=== PATIENT | female | born 1960 | race Hispanic/Latino ===

== ENCOUNTER 2023-03-29 14:57 | Inpatient (IN) | payer SELFPAY ==
[2023-03-29 16:13] LABS: #Monocytes 0.9 thou/uL (0.11-0.59); %Basophils 0.3 % (0.0-1.0); %Eosinophils 0.1 % (0.0-10.0); %Lymphocytes 10.8 % (21.0-51.0); %Monocytes 6.4 % (0.0-10.0); Hematocrit 42.7 % (36.0-47.0); Mean Corpuscular HGB CONC 32.8 g/dL (32.0-36.0); Mean Corpuscular Hemoglobin 31.4 pg (27.0-31.0); Mean Corpuscular Volume 95.7 fl (78.0-98.0); Mean Platelet Volume 10.1 fL (7.4-10.4); Platelet Count 149 10x3/uL (130-400); RBC Distribution Width 14.1 % (11.5-14.5); Red Blood Cell (RBC) Count 4.46 mill/uL (4.20-5.40); White Blood Cell (WBC) Count 14.6 10x3/uL (4.8-10.8)
[2023-03-29 16:32] LABS: Bilirubin Negative (Negative); Blood, Urine Trace (Negative); Glucose, Urine (Dipstick) Negative (Negative); Ketone, Urine Negative (Negative); Leukocyte Small (Negative); Nitrite Positive (Negative); Protein, Urine (Dipstick) Negative (Neg-Trace); Specific Gravity, Urine 1.015 (1.005-1.030); Urobilinogen 0.2 mg/dL (Less than 2); pH, Urine 5.5 (5.0-9.0)
[2023-03-29 16:33] LABS: Clarity Clear (Clear)
[2023-03-29 16:34] LABS: Bacteria/HPF 1+ HPF (None Seen); CAUTI Indications for Culture Dysuria,urgency,freq; RBC/HPF 0-3 HPF (0-3); Squamous Epithelial 0-3 HPF (0-3)
[2023-03-29 16:36] LABS: Urine Culture Reflex Yes Yes
[2023-03-29 16:37] LABS: ALT (SGPT) 14 U/L (8-55); AST (SGOT) 14 U/L (5-34); Albumin 3.8 g/dL (3.4-4.8); Alkaline Phosphatase 97 U/L (40-110); Anion Gap 13 mmol/L (10-20); BUN (Urea Nitrogen) 11 mg/dL (9.8-20.1); Bilirubin, Total 0.9 mg/dL (0.2-1.2); Calc. Creatinine Clearance 0 mL/min (70-130); Calcium 9.4 mg/dL (7.8-10.44); Carbon Dioxide 24 mmol/L (23-31); Chloride 99 mmol/L (98-107); Estimated GFR 89; Globulin 3.5 g/dL (2.4-3.5); Glucose 160 mg/dL (80-115); Lipase 19 U/L (8-78); Potassium 3.3 mmol/L (3.5-5.1); Protein, Total 7.3 g/dL (5.8-8.1); Sodium 133 mmol/L (136-145)
[2023-03-29 16:45] LABS: Troponin I Less than 0.010 ng/mL (< 0.028)
[2023-03-29] MEDS ORDERED: cefTRIAXone (ROCEPHIN) 1 GM VIAL ONE (17:03)
[2023-03-29 17:18] LABS: SARS-CoV-2 NAA Rapid Test Not Detected (NotDetected)
[2023-03-29] MEDS ORDERED: Acetaminophen 500 MG TAB ONE (17:18)
[2023-03-29] MEDS ORDERED: Ondansetron PF 4 MG/2 ML Vial IVP PRN (21:45)
[2023-03-29] MEDS ORDERED: Acetaminophen 325 MG TAB PO PRN (21:45)
[2023-03-29] MEDS ORDERED: Ondansetron ODT 4 MG TAB SL PRN (21:45)
[2023-03-29] MEDS ORDERED: Electrolyte Replacement Protocol 1 EACH FS SCH (21:52)
[2023-03-29 22:21] VITALS: BMI 23.6
[2023-03-30 06:05] LABS: #Monocytes 0.3 thou/uL (0.11-0.59); #Neutrophils 7.4 thou/uL (1.40-6.50); %Basophils 0.4 % (0.0-1.0); %Eosinophils 0.4 % (0.0-10.0); %Monocytes 3.9 % (0.0-10.0); %Neutrophils 86.9 % (42.0-75.0); Hematocrit 39.6 % (36.0-47.0); Hemoglobin 13.2 g/dL (12.0-16.0); Mean Corpuscular HGB CONC 33.3 g/dL (32.0-36.0); Mean Corpuscular Hemoglobin 31.9 pg (27.0-31.0); Mean Corpuscular Volume 95.7 fl (78.0-98.0); Mean Platelet Volume 9.9 fL (7.4-10.4); Platelet Count 105 10x3/uL (130-400); RBC Distribution Width 14.3 % (11.5-14.5); Red Blood Cell (RBC) Count 4.14 mill/uL (4.20-5.40); White Blood Cell (WBC) Count 8.5 10x3/uL (4.8-10.8)
[2023-03-30 06:32] LABS: Anion Gap 10 mmol/L (10-20); BUN (Urea Nitrogen) 8 mg/dL (9.8-20.1); Calc. Creatinine Clearance 77 mL/min (70-130); Calcium 8.5 mg/dL (7.8-10.44); Carbon Dioxide 26 mmol/L (23-31); Chloride 105 mmol/L (98-107); Estimated GFR 94; Glucose 206 mg/dL (80-115); Sodium 138 mmol/L (136-145)
[2023-03-30 08:00] LABS: Burr Cells SLIGHT = 2-5 cells HPF (0-1); CellaVision Operator ID LAB.GE; Platelet Adequacy Comment Platelets Decreased; Polychromasia SLIGHT = 2-3 cells HPF (0-2)
[2023-03-30] MEDS ORDERED: Potassium Chloride 20 MEQ TAB PO SCH (08:00)
[2023-03-30] MEDS: Lisinopril 20 MG TAB PO SCH (08:19)
[2023-03-30] MEDS: cefTRIAXone\\ROCEPHIN 1 GM in Sodium Chloride 0.9% 100 ML IVPB SCH (08:19)
[2023-03-30] MEDS: Famotidine 20 MG TAB PO SCH ×2 (08:19→21:04)
[2023-03-30] MEDS: metFORMIN 500 MG TAB PO SCH ×2 (08:19→16:43)
[2023-03-30] MEDS: predniSONE 20 MG TAB PO SCH (08:19)
[2023-03-30] MEDS ORDERED: Dextrose 5% in Water 1,000 ML IV PRN (12:41)
[2023-03-30] MEDS ORDERED: Glucagon 1 MG/ML KIT IM PRN (12:41)
[2023-03-30] MEDS ORDERED: Dextrose 50% Abboject 50 ML SYRINGE SLOW IVP PRN (12:41)
[2023-03-30] MEDS: HumaLOG 300 UNITS/3 ML VIAL SC PRN ×2 (16:42→21:04)
[2023-03-30] MEDS ORDERED: Atorvastatin Calcium 20 MG TAB PO SCH (21:00)
[2023-03-31 06:29] LABS: Anion Gap 10 mmol/L (10-20); BUN (Urea Nitrogen) 6 mg/dL (9.8-20.1); Calc. Creatinine Clearance 81 mL/min (70-130); Calcium 8.7 mg/dL (7.8-10.44); Carbon Dioxide 26 mmol/L (23-31); Chloride 104 mmol/L (98-107); Estimated GFR 98; Glucose 187 mg/dL (80-115); Potassium 3.5 mmol/L (3.5-5.1); Sodium 136 mmol/L (136-145)
[2023-03-31 06:47] LABS: #Eosinphils 0.1 thou/uL (0.0-0.7); #Monocytes 0.7 thou/uL (0.11-0.59); #Neutrophils 5.9 thou/uL (1.40-6.50); %Basophils 0.2 % (0.0-1.0); %Eosinophils 1.1 % (0.0-10.0); %Lymphocytes 20.3 % (21.0-51.0); %Monocytes 8.7 % (0.0-10.0); %Neutrophils 69.6 % (42.0-75.0); Hematocrit 37.8 % (36.0-47.0); Hemoglobin 12.7 g/dL (12.0-16.0); Mean Corpuscular HGB CONC 33.6 g/dL (32.0-36.0); Mean Corpuscular Hemoglobin 32.1 pg (27.0-31.0); Mean Corpuscular Volume 95.5 fl (78.0-98.0); Mean Platelet Volume 10.7 fL (7.4-10.4); Platelet Count 128 10x3/uL (130-400); RBC Distribution Width 13.9 % (11.5-14.5); Red Blood Cell (RBC) Count 3.96 mill/uL (4.20-5.40); White Blood Cell (WBC) Count 8.4 10x3/uL (4.8-10.8)
[2023-03-31] MEDS ORDERED: Potassium Chloride 20 MEQ TAB PO SCH (08:00)
[2023-03-31] MEDS: cefTRIAXone\\ROCEPHIN 1 GM in Sodium Chloride 0.9% 100 ML IVPB SCH (08:28)
[2023-03-31] MEDS: metFORMIN 500 MG TAB PO SCH (08:31)
[2023-03-31] MEDS: Famotidine 20 MG TAB PO SCH (08:31)
[2023-03-31] MEDS: Lisinopril 20 MG TAB PO SCH (08:31)
[2023-03-31] MEDS: predniSONE 20 MG TAB PO SCH (08:31)
[2023-03-31] MEDS ORDERED: Meropenem 1 GM in Sodium Chloride 0.9% 100 ML IVPB SCH ×2 (11:30→22:00)
[2023-03-31 11:36] VITALS: BP 139/77; TEMP 98.1
== END 2023-03-31 14:33 | disposition home or self-care (01) | DRG 872 ==
LOC: ERS 14:57 → T4-A 20:21 → OBSVTOIN 03-30 14:31
PROVIDERS: ADMIT Student in an Organized Health Care Education/Training Program; ATTEND Family Medicine
DX: A41.51 Sepsis due to Escherichia coli [E. coli] (principal); N10 Acute pyelonephritis; N13.30 Unspecified hydronephrosis; E78.5 Hyperlipidemia, unspecified; M19.90 Unspecified osteoarthritis, unspecified site; I10 Essential (primary) hypertension; E11.9 Type 2 diabetes mellitus without complications; Z20.822 Contact with and (suspected) exposure to COVID-19; Z98.890 Other specified postprocedural states
CPT/HCPCS: 36415; 36416; 71045; 74176; 74181; 80048; 80053; 81001; 83036; 83605; 83690; 84484; 85025; 87040; 87077; 87086; 87186; 93005; 96361; 96365; 96376; G0378; J0696; J1815; J2185; J3490; J7512; U0002

== ENCOUNTER 2023-06-03 10:29 | Observation (INO) | payer SELFPAY ==
[2023-06-03] MEDS ORDERED: Ketamine In 0.9 % NaCl 50 MG/5 ML SYRINGE ONE ×2 (12:13→12:54)
[2023-06-03] MEDS ORDERED: Bupivacaine 0.25% 10 ML VIAL ONE (12:13)
[2023-06-03] MEDS ORDERED: Morphine 4 MG/ML VIAL ONE (15:48)
[2023-06-03] MEDS ORDERED: Ondansetron ODT 4 MG TAB PO PRN (17:17)
[2023-06-03] MEDS ORDERED: Ipratropium/Albuterol 3 ML NEB NEB PRN (17:17)
[2023-06-03] MEDS ORDERED: Morphine 2 MG/ML VIAL SLOW IVP PRN (17:17)
[2023-06-03] MEDS ORDERED: hydrALAZINE 20 MG/ML VIAL SLOW IVP PRN (17:17)
[2023-06-03] MEDS ORDERED: Dextrose 50% Abboject 50 ML SYRINGE SLOW IVP PRN (17:17)
[2023-06-03] MEDS ORDERED: Glucagon 1 MG/ML KIT IM PRN (17:17)
[2023-06-03] MEDS ORDERED: Dextrose 5% in Water 1,000 ML IV PRN (17:17)
[2023-06-03] MEDS ORDERED: TETANUS, DIPHTHERIA TOX,ADULT (TDVAX) 0.5 ML VIAL IM ONE (17:17)
[2023-06-03 18:23] VITALS: BMI 20.2
[2023-06-03] MEDS ORDERED: Acetaminophen 325 MG TAB ONE (18:28)
[2023-06-03] MEDS ORDERED: Boostrix 0.5 ML (Tdap) VIAL (>/=7 yrs of age) ONE (18:29)
[2023-06-03] MEDS: Acetaminophen 325 MG TAB PO SCH (18:41)
[2023-06-03 19:20] LABS: Troponin I Less than 0.010 ng/mL (< 0.028)
[2023-06-03] MEDS: Famotidine 20 MG TAB PO SCH (20:21)
[2023-06-03] MEDS: HumaLOG 300 UNITS/3 ML VIAL SC PRN (20:25)
[2023-06-03 21:11] LABS: #Monocytes 0.8 thou/uL (0.11-0.59); %Basophils 0.3 % (0.0-1.0); %Eosinophils 0.3 % (0.0-10.0); %Lymphocytes 22.2 % (21.0-51.0); %Monocytes 8.2 % (0.0-10.0); %Neutrophils 68.8 % (42.0-75.0); Hematocrit 36.1 % (36.0-47.0); Mean Corpuscular HGB CONC 33.2 g/dL (32.0-36.0); Mean Corpuscular Hemoglobin 31.3 pg (27.0-31.0); Mean Platelet Volume 9.8 fL (7.4-10.4); Platelet Count 211 10x3/uL (130-400); RBC Distribution Width 15.2 % (11.5-14.5); Red Blood Cell (RBC) Count 3.84 mill/uL (4.20-5.40); White Blood Cell (WBC) Count 10.1 10x3/uL (4.8-10.8)
[2023-06-03 21:34] LABS: ALT (SGPT) 15 U/L (8-55); AST (SGOT) 17 U/L (5-34); Albumin 3.8 g/dL (3.4-4.8); Alkaline Phosphatase 84 U/L (40-110); Anion Gap 14 mmol/L (10-20); BUN (Urea Nitrogen) 12 mg/dL (9.8-20.1); Bilirubin, Total 0.8 mg/dL (0.2-1.2); Calc. Creatinine Clearance 63 mL/min (70-130); Calcium 8.5 mg/dL (7.8-10.44); Carbon Dioxide 25 mmol/L (23-31); Chloride 99 mmol/L (98-107); Estimated GFR 89; Globulin 2.4 g/dL (2.4-3.5); Glucose 286 mg/dL (80-115); Protein, Total 6.2 g/dL (5.8-8.1); Sodium 134 mmol/L (136-145)
[2023-06-04] MEDS: traMADol HCl 50 MG TAB PO PRN ×2 (01:06→08:01)
[2023-06-04] MEDS: Acetaminophen 325 MG TAB PO SCH ×3 (01:09→12:48)
[2023-06-04] MEDS: Famotidine 20 MG TAB PO SCH (07:59)
[2023-06-04 08:15] LABS: Glucose 179 mg/dL (80-115)
[2023-06-04 11:50] LABS: Glucose 183 mg/dL (80-115)
[2023-06-04 12:27] VITALS: TEMP 98.2
[2023-06-04] MEDS: HumaLOG 300 UNITS/3 ML VIAL SC PRN (12:49)
[2023-06-04 15:54] VITALS: BP 126/77
== END 2023-06-04 15:58 | disposition home or self-care (01) ==
LOC: ERS 10:29 → INTOOBSV 16:08 → ERHOLD 16:08 → T4-A 19:06
PROVIDERS: ADMIT Surgery; ATTEND Surgery
DX: S52.121A Displaced fracture of head of right radius, initial encounter for closed fracture (principal); S53.004A Unspecified dislocation of right radial head, initial encounter; M06.9 Rheumatoid arthritis, unspecified; E78.5 Hyperlipidemia, unspecified; I10 Essential (primary) hypertension; E11.42 Type 2 diabetes mellitus with diabetic polyneuropathy; Z79.84 Long term (current) use of oral hypoglycemic drugs; Z79.899 Other long term (current) drug therapy; W18.30XA Fall on same level, unspecified, initial encounter
CPT/HCPCS: 24600; 36415; 36416; 71045; 80053; 82947; 84484; 85025; 90714; 90715; 96372; 96374; 96376; G0378; J1815; J2270; J2272; J3490; S0020

== ENCOUNTER 2023-06-17 08:49 | Outpatient (CLI) | payer SELFPAY ==
[2023-06-17 11:41] LABS: #Eosinphils 0.1 10x3/uL (0.0-0.5); #Monocytes 0.4 10x3/uL (0.0-1.1); #Neutrophils 4.4 10x3/uL (1.5-8.4); %Basophils 0.3 % (0.0-2.0); %Eosinophils 1.4 % (0.0-6.0); %Lymphocytes 22.6 % (18.0-47.0); %Monocytes 6.7 % (0.0-10.0); %Neutrophils 68.8 % (40.0-75.0); Hematocrit 41.5 % (34.9-44.5); Hemoglobin 13.5 g/dL (12.0-15.5); Mean Corpuscular HGB CONC 32.5 g/dL (32.0-36.0); Mean Corpuscular Hemoglobin 30.6 pg (27.0-33.0); Mean Corpuscular Volume 94.1 fl (81.6-98.3); Mean Platelet Volume 10.2 fl (7.4-10.4); Platelet Count 237 10x3/uL (150-450); RBC Distribution Width 15.6 % (11.5-14.5); Red Blood Cell (RBC) Count 4.41 10x6/uL (3.90-5.03); White Blood Cell (WBC) Count 6.4 10x3/uL (3.5-10.5)
[2023-06-17 12:13] LABS: Anion Gap 14 mmol/L (10-20); BUN (Urea Nitrogen) 11 mg/dL (9.8-20.1); Calc. Creatinine Clearance 0 mL/min (70-130); Calcium 9.5 mg/dL (7.8-10.44); Carbon Dioxide 25 mmol/L (23-31); Chloride 106 mmol/L (98-107); Estimated GFR 100; Glucose 92 mg/dL (80-115); Potassium 4.3 mmol/L (3.5-5.1); Sodium 141 mmol/L (136-145)
== END 2023-06-17 08:50 | disposition home or self-care (01) ==
LOC: LABBT 08:49
PROVIDERS: ATTEND Orthopaedic Surgery
DX: Z01.818 Encounter for other preprocedural examination (principal)
CPT/HCPCS: 80048; 85025; 93005; 93010

== ENCOUNTER 2023-06-18 05:50 | Day surgery (SDC) | payer SELFPAY ==
[2023-06-17 09:53] VITALS: BMI 19.8
[2023-06-18] MEDS ORDERED: Midazolam HCl 2 mg/2 ml Vial ONE (06:18)
[2023-06-18] MEDS ORDERED: PROPOFOL 20 ML ONE (06:18)
[2023-06-18] MEDS ORDERED: fentaNYL PF 100 MCG/2 ML SYRINGE ONE (06:18)
[2023-06-18] MEDS ORDERED: Dexamethasone 4 mg/ml Vial ONE (06:19)
[2023-06-18] MEDS ORDERED: Ondansetron PF 4 MG/2 ML Vial ONE ×5 (06:19→11:06)
[2023-06-18] MEDS ORDERED: Rocuronium Bromide 10 MG/ML (10ML VIAL) ONE (06:19)
[2023-06-18] MEDS ORDERED: CEFAZOLIN 2 GM VIAL ONE (06:50)
[2023-06-18] MEDS ORDERED: Sodium Chloride 0.9% 100 ML ONE (06:50)
[2023-06-18] MEDS ORDERED: PHENYLEPHRINE-NS 100 MCG/ML 10 ML SYRINGE ONE (07:06)
[2023-06-18] MEDS ORDERED: Dexamethasone 20 MG/5 ML VIAL ONE (07:10)
[2023-06-18] MEDS ORDERED: Ketorolac Tromethamine 30 MG/ML VIAL ONE ×3 (07:10→11:06)
[2023-06-18] MEDS ORDERED: ePHEDrine Sulfate 50 MG/10 ML VIAL ONE ×3 (07:10→10:27)
[2023-06-18] MEDS ORDERED: Lidocaine 1% PF 5 ML VIAL ONE (07:10)
[2023-06-18] MEDS ORDERED: PROPOFOL 200 MG/20 ML VIAL ONE (07:10)
[2023-06-18] MEDS ORDERED: Bupivacaine PF 0.5% 30 ML VIAL ONE (07:32)
[2023-06-18] MEDS ORDERED: EPINEPHrine 1 MG/ML VIAL ONE (07:32)
[2023-06-18] MEDS ORDERED: Glycopyrrolate 0.2 MG/ML 5 ML SYRINGE ONE (10:26)
[2023-06-18] MEDS ORDERED: SUGAMMADEX SODIUM 200 MG/2 ML VIAL ONE (11:16)
== END 2023-06-18 12:00 | disposition home or self-care (01) ==
LOC: SDC 05:50
PROVIDERS: ATTEND Orthopaedic Surgery
PROC: 0RQL0ZZ Repair Right Elbow Joint, Open Approach (ICD-10-PCS; principal; 2023-06-18)
PROC: 0PRH0JZ Replacement of Right Radius with Synthetic Substitute, Open Approach (ICD-10-PCS; principal; 2023-06-18)
DX: S53.104D Unspecified dislocation of right ulnohumeral joint, subsequent encounter (principal); S52.121P Displaced fracture of head of right radius, subsequent encounter for closed fracture with malunion; I10 Essential (primary) hypertension; E11.9 Type 2 diabetes mellitus without complications; M19.90 Unspecified osteoarthritis, unspecified site; M06.831 Other specified rheumatoid arthritis, right wrist; Z79.84 Long term (current) use of oral hypoglycemic drugs; Z79.899 Other long term (current) drug therapy; Z79.4 Long term (current) use of insulin
CPT/HCPCS: 36416; C1713; C1776; J0171; J1100; J1885; J2250; J2405; J2704; J3490; S0020